=== PATIENT | female | born 1965 | race African-American/Black ===

== ENCOUNTER 2019-07-15 11:28 | Emergency (ER) | payer SELFPAY ==
--- NOTE | 2019-07-15 11:43 | ER Document Report ---
ED Medical Screen (RME) - General Chief Complaint: Breathing Difficulty Stated Complaint: DIFFICULTY BREATHING/BACK PAIN Time Seen by Provider: 07/15/19 11:40 Primary Care Provider: DELFINA AUSTIN [Primary Care Provider] - Follow up as needed - HPI Notes: 07/15/19 11:42 Patient is a 53-year-old female with a history of asthma who presents complaining of waking up today complaining of shortness of breath and having back pain. Patient states that she has not been feeling wheezy. She did have a cough and cold this past week, but that has since improved. No fever. Patient states that she has gained some weight. I have treated and performed a rapid initial assessment of this patient. A comprehensive ED assessment and evaluation of the patient, analysis of test results and completion of medical decision making process will be conducted by additional ED providers. PHYSICAL EXAMINATION: GENERAL: Well-appearing, well-nourished and in no acute distress. A&Ox4. Answers questions appropriately. Lungs: Grossly CTAB without retractions Extremities: No edema Heart: RRR - Related Data Allergies/Adverse Reactions: amoxicillin Allergy (Verified 07/15/19 11:39) Physical Exam - Vital signs Vitals: Temp Pulse Resp BP Pulse Ox 98.3 F 100 20 209/89 H 99 07/15/19 11:33 07/15/19 11:33 07/15/19 11:33 07/15/19 11:33 07/15/19 11:33 Course - Vital Signs Vital signs: Temp Pulse Resp BP Pulse Ox 98.3 F 100 20 209/89 H 99 07/15/19 11:33 07/15/19 11:33 07/15/19 11:33 07/15/19 11:33 07/15/19 11:33 Doctor's Discharge - Discharge Referrals: DELFINA AUSTIN [Primary Care Provider] - Follow up as needed
[2019-07-15 12:17] LABS: ABSOLUTE BASOPHILS # (AUTO) 0.1 10^3/uL (0.0-0.2); ABSOLUTE EOSINOPHILS # (AUTO) 0.2 10^3/uL (0.0-0.6); ABSOLUTE LYMPHOCYTES (AUTO) 4.8 10^3/uL (0.5-4.7); ABSOLUTE MONOCYTES (AUTO) 0.8 10^3/uL (0.1-1.4); ABSOLUTE NEUT (AUTO) 2.4 10^3/uL (1.7-8.2); BASOPHILS % (AUTO) 0.7 % (0-2); EOSINOPHILS % (AUTO) 2.5 % (0-6); HEMATOCRIT 42.2 % (36.0-47.0); HEMOGLOBIN 14.5 g/dL (12.0-15.5); MEAN CORPUSCULAR HEMOGLOBIN 31.6 pg (27.0-33.4); MEAN CORPUSCULAR HGB CONC 34.3 g/dL (32.0-36.0); MEAN CORPUSCULAR VOLUME 92 fl (80-97); MONOCYTES % (AUTO) 9.5 % (3-13); PLATELET COUNT 286 10^3/uL (150-450); RED BLOOD COUNT 4.58 10^6/uL (3.72-5.28); RED CELL DISTRIBUTION WIDTH 12.7 % (11.5-14.0); SEGMENTED NEUTROPHILS % (AUTO) 29.3 % (42-78); TOTAL CELLS COUNTED % (AUTO) 100 %; WHITE BLOOD COUNT 8.2 10^3/uL (4.0-10.5)
[2019-07-15 12:20] LABS: APPEARANCE,URINE SLIGHTLY-CLOUDY; BILIRUBIN,URINE NEGATIVE (NEGATIVE); COLOR,URINE YELLOW; GLUCOSE, URINE NEGATIVE (NEGATIVE); KETONES,URINE NEGATIVE (NEGATIVE); PROTEIN,URINE 100 mg/dL (NEGATIVE); URINE SPECIFIC GRAVITY 1.019
[2019-07-15 12:39] LABS: ALBUMIN 4.6 g/dL (3.5-5.0); ALKALINE PHOSPHATASE 75 U/L (38-126); ANION GAP 9 (5-19); ASPARTATE AMINO TRANSFERASE 23 U/L (14-36); BILIRUBIN,DIRECT 0.3 mg/dL (0.0-0.4); BILIRUBIN,TOTAL 0.5 mg/dL (0.2-1.3); BLOOD UREA NITROGEN 12 mg/dL (7-20); CALCIUM 10.1 mg/dL (8.4-10.2); CARBON DIOXIDE 27 mmol/L (22-30); CHLORIDE 106 mmol/L (98-107); GLUCOSE 92 mg/dL (75-110); POTASSIUM 3.7 mmol/L (3.6-5.0); TOTAL PROTEIN 8.3 g/dL (6.3-8.2)
--- NOTE | 2019-07-15 12:58 | EKG REPORT ---
SEVERITY:- NORMAL ECG - SINUS RHYTHM : Confirmed by: Krystian Simons MD 15-Jul-2019 12:57:08
[2019-07-15 13:00] LABS: NT PRO BNP 97 pg/mL (<125)
[2019-07-15 13:03] LABS: TROPONIN I < 0.012 ng/mL
--- NOTE | 2019-07-15 13:13 | RADIOLOGY REPORT (SQ) ---
EXAM DESCRIPTION: CHEST 2 VIEWS COMPLETED DATE/TIME: 07/15/2019 12:45 pm REASON FOR STUDY: SOB COMPARISON: None. EXAM PARAMETERS: NUMBER OF VIEWS: two views TECHNIQUE: PA and lateral views of the chest were obtained. RADIATION DOSE: NA LIMITATIONS: none FINDINGS: LUNGS AND PLEURA: No consolidation, pleural effusion or pneumothorax. MEDIASTINUM AND HILAR STRUCTURES: No mediastinal or hilar contour abnormality. HEART AND VASCULAR STRUCTURES: The cardiac silhouette is borderline enlarged. The pulmonary vasculat ure is within normal limits. BONES: No acute findings. HARDWARE: None in the chest. OTHER: No other finding. IMPRESSION: No acute cardiopulmonary process. TECHNICAL DOCUMENTATION: JOB ID: [id number] [email or web address]- All Rights Reserved Reading location - IP/workstation name: [email or web address]
--- NOTE | 2019-07-15 13:51 | ER Document Report ---
ED General - General Chief Complaint: Breathing Difficulty Stated Complaint: DIFFICULTY BREATHING/BACK PAIN Time Seen by Provider: 07/15/19 11:40 Primary Care Provider: DELFINA AUSTIN [Primary Care Provider] - Follow up as needed Mode of Arrival: Ambulatory Information source: Patient TRAVEL OUTSIDE OF THE [place] IN LAST 30 DAYS: No - HPI Notes: Patient presents with complaints of approximately 3 days of cough congestion body aches fever and chills. She states it does feel better now that she has been seen in the emergency department. She states she also had one sharp pain in the middle of her back. The body aches have been generalized. They are worse with exertion and better with rest. They do radiate throughout her body. They have been moderate in intensity and intermittent. Patient denies any vomiting or diarrhea. She denies any vaginal or urinary symptoms. - Related Data Allergies/Adverse Reactions: amoxicillin Allergy (Verified 07/15/19 11:39) Past Medical History - General Information source: Patient - Social History Smoking Status: Current Every Day Smoker Frequency of alcohol use: None Drug Abuse: None Family History: Reviewed & Not Pertinent Patient has suicidal ideation: No Patient has homicidal ideation: No Review of Systems - Review of Systems Constitutional: Chills, Malaise Cardiovascular: denies: Chest pain, Palpitations Respiratory: Cough, Short of breath -: Yes All other systems reviewed and negative Physical Exam - Vital signs Vitals: Temp Pulse Resp BP Pulse Ox 98.3 F 100 20 209/89 H 99 07/15/19 11:33 07/15/19 11:33 07/15/19 11:33 07/15/19 11:33 07/15/19 11:33 Interpretation: Hypertensive - General General appearance: Appears well, Alert - HEENT Head: Normocephalic, Atraumatic Eyes: Normal Pupils: PERRL - Respiratory Respiratory status: No respiratory distress Chest status: Nontender Breath sounds: Normal Chest palpation: Normal - Cardiovascular Rhythm: Regular Heart sounds: Normal auscultation Murmur: No - Abdominal Inspection: Normal Distension: No distension Bowel sounds: Normal Tenderness: Nontender Organomegaly: No organomegaly - Back Back: Normal, Nontender - Extremities General upper extremity: Normal inspection, Nontender, Normal color, Normal ROM, Normal temperature General lower extremity: Normal inspection, Nontender, Normal color, Normal ROM, Normal temperature, Normal weight bearing. No: Jermaine's sign - Neurological Neuro grossly intact: Yes Cognition: Normal Orientation: AAOx4 Maryan Coma Scale Eye Opening: Spontaneous Fowler Coma Scale Verbal: Oriented Maryan Coma Scale Motor: Obeys Commands Maryan Coma Scale Total: 15 Speech: Normal Motor strength normal: LUE, RUE, LLE, RLE Sensory: Normal - Psychological Associated symptoms: Normal affect, Normal mood - Skin Skin Temperature: Warm Skin Moisture: Dry Skin Color: Normal Course - Re-evaluation Re-evalutation: 07/15/19 13:47 Patient presents with upper respiratory symptoms. She will be treated with cough medicine as well as antibiotics. She also has a urinary tract infection by labs but no significant symptoms. This should be sufficiently treated with the same antibiotic as her upper respiratory infection. Patient did not have insurance so she will be prescribed Bactrim. Patient also seems to have uncontrolled hypertension and will be started on a low-dose of high blood pressure medicine as well as referred to her primary care physician. - Vital Signs Vital signs: Temp Pulse Resp BP Pulse Ox 98.3 F 100 20 199/101 H 97 07/15/19 11:33 07/15/19 11:33 07/15/19 11:33 07/15/19 12:31 07/15/19 13:00 - Laboratory Result Diagrams: 07/15/19 11:52 07/15/19 11:52 Laboratory results interpreted by me: 07/15/19 07/15/19 07/15/19 11:52 11:52 11:52 Lymph % (Auto) 58.0 H Absolute Lymphs (auto) 4.8 H Seg Neutrophils % 29.3 L Total Protein 8.3 H Urine Protein 100 H Urine Urobilinogen 4.0 H Leukocyte Esterase Rfl LARGE H - Diagnostic Test Radiology reviewed: Image reviewed, Reports reviewed - EKG Interpretation by [place] EKG shows normal: Sinus rhythm Rate: Normal - 86 Rhythm: NSR [place]/QRS: No: Right axis deviation, Left axis deviation Discharge - Discharge Clinical Impression: URI (upper respiratory infection) Qualifiers: URI type: unspecified URI Qualified Code(s): J06.9 - Acute upper respiratory infection, unspecified UTI (urinary tract infection) Qualifiers: Urinary tract infection type: acute cystitis Hematuria presence: with hematuria Qualified Code(s): N30.01 - Acute cystitis with hematuria Condition: Stable Disposition: HOME, SELF-CARE Instructions: Upper Respiratory Illness ([facility]), Urinary Tract Infection ([facility]), Trimethoprim-Sulfa ([facility]) Additional Instructions: Please take your blood pressure medicine every day as prescribed. Please fo llow-up with your primary care physician as soon as possible for a reassessment of your blood pressure. If your blood pressure goes untreated it can lead to strokes, kidney failure, blindness, heart attacks and even . Prescriptions: Benzonatate [Tessalon Perle 100 mg Capsule] 100 mg PO Q8HP PRN #20 cap PRN Reason: Sulfamethoxazole/Trimethoprim [Bactrim Ds Tablet] 1 each PO BID 7 Days #14 tablet Amlodipine Besylate [Norvasc 5 mg Tablet] 5 mg PO DAILY #30 tablet Forms: Elevated Blood Pressure, Return to Work Referrals: LAVINIA SMITH MD [COMMUNITY BASED STAFF] - Follow up in 1 week
[2019-07-15 14:23] VITALS: BP 173/94
== END 2019-07-15 14:23 | disposition home or self-care (01) ==
LOC: ER 11:28
DX: J06.9 Acute upper respiratory infection, unspecified (principal); N30.01 Acute cystitis with hematuria; M79.10 Myalgia, unspecified site; R53.81 Other malaise; F17.200 Nicotine dependence, unspecified, uncomplicated; Z88.0 Allergy status to penicillin
CPT/HCPCS: 36415; 71046; 80053; 81001; 83880; 84484; 85025; 93005; 93010; 99285